=== PATIENT | female | born 1965 | race Caucasian/White ===

== ENCOUNTER 2019-01-05 22:09 | Emergency (ER) | payer OTHER ==
[~2019-01-05] VITALS: Ht 160 cm; Wt 56.2 kg
[~2019-01-05 22:09] MED LIST: SYNTHROID88 MCG PO
[2019-01-05] MEDS ORDERED: ACTIGALL300 MG (23:14)
== END 2019-01-06 02:38 | disposition home or self-care (01) ==
LOC: ER 22:09
DX: M25.441 Effusion, right hand (principal); M79.644 Pain in right finger(s)